=== PATIENT | male | born 1960 | race Caucasian/White ===

== ENCOUNTER 2017-11-08 15:47 | Emergency (ER) | payer BC ==
[2017-11-08 15:59] VITALS: BP 193/107
--- NOTE | 2017-11-08 16:23 | UC ---
Cardiac HPI - HPI Summary HPI Summary: SUDDEN ONSET OF ANTERIOR CHEST PAIN AND NAUSEA WHILE IN [employer] [place] ABOUT 20 MIN TOW MATE. CHECKED PULSE AND FELT HE WAS SKIPPING BEATS. DENIES SOB. NO FEVER. PAIN HAS RESOLVED SINCE BEING HERE IN UC AND PT NOW FEELS WEAK AND FATIGUED. TOOK 81MG ASA EARLIER TODAY. 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 - Onset/Duration: Sudden Onset, Lasting Minutes Timing: Constant Initial Severity: Moderate Current Severity: None Pain Intensity: 0 Chest Pain Location: Diffuse Character: Skipped Beats, Dull/Aching Aggravating Factor(s): Nothing Alleviating Factor(s): Spontaneous Resolution Associated Signs & Symptoms: Positive: Chest Pain, Weakness, Nausea/Vomiting - Allergy/Home Medications Allergies/Adverse Reactions: Allergies Allergy/AdvReac Type Severity Reaction Status Date / Time No Known Allergies Allergy Verified 11/08/17 15:55 Home Medications: Home Medications Aspirin [Aspirin 81 MG TAB] 81 mg PO DAILY WITH MEAL 11/08/17 [History Confirmed 11/08/17] Bp Med 11/08/17 [History] Cholecalciferol TAB* [Vitamin D TAB*] 1,000 unit PO DAILY 11/08/17 [History Confirmed 11/08/17] Metformin HCl [Fortamet] 1,000 mg PO BID 11/08/17 [History Confirmed 11/08/17] Multiple Vitamins W/ Minerals [Multivitamin Men] 1 tab PO DAILY 11/08/17 [ History Confirmed 11/08/17] Potassium Chlor TAB* [Potassium Chlor TAB 20 MEQ*] 2 tab PO DAILY WITH MEAL [History Confirmed 11/08/17] PMH/Surg Hx/FS Hx/Imm Hx Endocrine History: Diabetes Cardiovascular History: Hypertension - Surgical History Surgical History: Yes - Family History Known Family History: Positive: Hypertension - Social History Alcohol Use: Occasionally Substance Use Type: None Smoking Status (MU): Former Smoker Review of Systems Constitutional: Fatigue - WEAKNESS Respiratory: Negative Cardiovascular: Chest Pain, Other - SKIPPED BEATS Gastrointestinal: Nausea All Other Systems Reviewed And Are Negative: Yes Physical Exam Triage Information Reviewed: Yes Appearance: No Pain Distress, Well-Nourished, Ill-Appearing - MOD Vital Signs: Initial Vital Signs Temp 97.3 F 11/08/17 15:50 Pulse 79 11/08/17 15:50 Resp 18 11/08/17 15:50 BP 193/107 11/08/17 15:50 Pulse Ox 99 11/08/17 15:50 Vital Signs Reviewed: Yes Eyes: Positive: Conjunctiva Clear ENT: Positive: Hearing grossly normal Neck: Positive: Supple Respiratory Exam: Normal Cardiovascular Exam: Normal Abdomen Description: Positive: Soft Musculoskeletal: Positive: No Edema Neurological: Positive: Alert Psychological: Positive: Normal Response To Family, Age Appropriate Behavior Skin: Positive: rashes - PSORIASIS PLAQUES Diagnostics - EKG Cardiac Rate: NL Cardiac Rhythm: Sinus: Normal - 77 BPM Ectopy: None ST Segment: Normal - Assessment/Plan Course Of Treatment: TOOK 81MG ASA EARLIER TODAY AT HOME. PT GIVEN 81MG X 3 CHEW AND SWALLOW HERE IN UC. - Clinical Impression Provider Diagnoses: CHEST PAIN - Physician Notifications Discussed Patient Care With: Suellen Sykes - TO [facility] BY AMBULANCE Time Discussed With Above Provider: 16:25 Instructed by Provider To: MD Will See In ED Discharge - Discharge Plan Condition: Stable Disposition: TRANS HIGHER LVL OF CARE FAC Referrals: No Primary Care Phys,NOPCP [Primary Care Provider] -
[2017-11-08] MEDS ORDERED: Aspirin Low Dose CHEW TAB* 81 MG PO ONE (16:28)
== END 2017-11-08 16:45 | disposition short-term general hospital (02) ==
LOC: UCEAST 15:47
DX: R07.9 Chest pain, unspecified (principal); E11.9 Type 2 diabetes mellitus without complications; I10 Essential (primary) hypertension; Z82.49 Family history of ischemic heart disease and other diseases of the circulatory system; Z87.891 Personal history of nicotine dependence; Z79.82 Long term (current) use of aspirin
CPT/HCPCS: 93005; 99203; A9270-GY; G0463

== ENCOUNTER 2017-11-08 17:08 | Observation (INO) | payer BC ==
[2017-11-08 18:10] LABS: Hematocrit 44 % (42-52); Hemoglobin 14.9 g/dl (14.0-18.0); Mean Corpuscular HGB Conc 34 g/dl (31-36); Mean Corpuscular Hemoglobin 28 pg (27-31); Mean Corpuscular Volume 84 fL (80-94); Mean Platelet Volume 9 um3 (7.4-10.4); Red Blood Count 5.27 10^6/ul (4.0-5.4); Red Cell Distribution Width 16 % (10.5-15); White Blood Count 9.5 10^3/ul (3.5-10.8)
--- NOTE | 2017-11-08 18:18 | RAD ---
INDICATION: Palpitations COMPARISON: None TECHNIQUE: An AP portable view obtained at 1800 hours is submitted. FINDINGS: Bones/Soft Tissues: There are no acute bony findings. Cardiomediastinal: The cardiomediastinal silhouette is normal. Lungs: There are no infiltrates. Pleura: There are no pleural effusions. Other: None IMPRESSION: NO ACTIVE DISEASE.
[2017-11-08 18:27] LABS: Albumin 4.2 g/dL (3.2-5.2); BUN/Creatinine Ratio 21.9 (8-20); Calcium 9.6 mg/dL (8.6-10.3); EGFR African American 103.5 (>60); EGFR Non-African American 80.5 (>60); Globulin 2.9 g/dL (2-4); Magnesium 1.8 mg/dL (1.9-2.7); Potassium 3.6 mmol/L (3.5-5.0); Total Bilirubin 0.7 mg/dL (0.2-1.0); Total Protein 7.1 g/dL (6.4-8.9); Troponin I 0.01 ng/mL (<0.04)
--- NOTE | 2017-11-08 18:50 | ED ---
Kirk Wang Gabriel, scribed for Ariana Delgado MD on 11/08/17 at 1751 . Palpitations / Dysrhythmia - HPI Summary HPI Summary: This patient is a 57 year old M BIBA to [facility] from accompanied by his with a chief complaint of palpitations since [employer]. The patient rates the pain 0/ 10 in severity. Patient reports weakness. Patient denies actual CP, but has an abnormal feeling in his chest. Pt denies nausea and vomiting, SOB and diaphoresis. Pt states he was trying to get [place] decoration out in the front yard and he was frustrated due to the task. After this he got in the car and was driving when he got a warm sensation in his chest and felt like he ate a full meal even though he had not eaten. He also states that his chest didn t feel right, he said his heart beat 4 times and stopped and was irregular for some time. Pt is having frequent PVCs and PAC's noted on the monitor during the evaluation his BP is 145/85. He states he is not feeling these PACs currently that are noted on the monitor. Patient has a history of HTN, DM II, and hyperlipidemia. He is a nonsmoker. No fam hx CAD per pt. 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 Timing: Intermittent Episodes Lasting: - minutes Severity Initially: Mild Severity Currently: None Character: Irregular Aggravating: Nothing Alleviating: Other - spontaneous Associated Signs & Symptoms: Negative - nausea, vomiting, SOB and CP - Risk Factors Cardiac: Hypertension, Diabetes, Elevated Lipids - Allergy/Home Medications Allergies/Adverse Reactions: Allergies Allergy/AdvReac Type Severity Reaction Status Date / Time No Known Allergies Allergy Verified 11/08/17 15:55 Home Medications: Home Medications Atorvastatin* 80 mg PO DAILY 11/08/17 [History Confirmed 11/08/17] Fish Oil 500 mg 1,000 mg PO DAILY 11/08/17 [History Confirmed 11/08/17] Glipizide 5 mg PO BID 11/08/17 [History Confirmed 11/08/17] Hydrochlorothiazide TAB* 50 mg PO DAILY 11/08/17 [History Confirmed 11/08/17] PMH/Surg Hx/FS Hx/Imm Hx Previously Healthy: No Endocrine/Hematology History: Reports: Hx Diabetes, Other Endocrine/ Hematological Disorders - psoriasis Cardiovascular History: Reports: Hx Hypercholesterolemia, Hx Hypertension - Surgical History Surgery Procedure, Year, and Place: no surgery Infectious Disease History: No Infectious Disease History: Denies: Traveled Outside the [place] in Last 30 Days - Family History Known Family History: Positive: Hypertension, Diabetes Negative: Cardiac Disease - Social History Occupation: Employed Full-time Lives: With Family Alcohol Use: Occasionally Hx Substance Use: No Substance Use Type: Reports: None Hx Tobacco Use: No Smoking Status (MU): Former Smoker Review of Systems Constitutional: Negative Positive: Palpitations. Negative: Chest Pain Respiratory: Negative Gastrointestinal: Negative Negative: Nausea Skin: Negative Positive: Weakness Psychological: Normal All Other Systems Reviewed And Are Negative: Yes Physical Exam - Summary Physical Exam Summary: Appearance: Well-appearing, no pain distress, Pt is obese. Skin: Warm, color reflects adequate perfusion. Psoriasis on arms, legs, abdomen- extensive Head: Normal Head/Face appearance Eyes: Conjunctiva clear, EOMI ENT: Normal appearance Neck: Supple, no JVD Respiratory: Lungs clear, Normal breath sounds, no respiratory distress Cardio: No murmur, pulses normal, brisk capillary refill. Frequent PACs on monitor. Abdomen: soft, nontender Musculoskeletal: Strength Intact/ ROM intact Neuro: Alert, muscle tone normal,facial symmetry, speech normal, sensory/motor intact Triage Information Reviewed: Yes Vital Signs On Initial Exam: Initial Vitals Temp Pulse Resp BP Pulse Ox 97.8 F 70 20 204/105 95 11/08/17 17:11 11/08/17 17:11 11/08/17 17:11 11/08/17 17:11 11/08/17 17:11 Vital Signs Reviewed: Yes - Vianca Coma Scale Coma Scale Total: 15 Diagnostics - Vital Signs Vital Signs Temp Pulse Resp BP Pulse Ox 11/08/17 17:30 66 11 145/86 97 11/08/17 17:22 68 12 155/92 98 11/08/17 17:21 64 96 11/08/17 17:11 97.8 F 70 20 204/105 95 - Laboratory Lab Results: Lab Results 11/08/17 11/08/17 11/08/17 Range/Units 18:00 18:00 18:00 WBC (3.5-10.8) 10^3/ul RBC (4.0-5.4) 10^6/ul Hgb (14.0-18.0) g/dl Hct (42-52) % MCV (80-94) fL MCH (27-31) pg MCHC (31-36) g/dl RDW (10.5-15) % Plt Count (150-450) 10^3/ul MPV (7.4-10.4) um3 Neut % (Auto) (38-83) % Lymph % (Auto) (25-47) % [place] % (Auto) (1-9) % Eos % (Auto) (0-6) % Baso % (Auto) (0-2) % Absolute Neuts (auto) (1.5-7.7) 10^3/ul Absolute Lymphs (auto) (1.0-4.8) 10^3/ul Absolute Monos (auto) (0-0.8) 10^3/ul Absolute Eos (auto) (0-0.6) 10^3/ul Absolute Basos (auto) (0-0.2) 10^3/ul Absolute Nucleated RBC 10^3/ul Nucleated RBC % INR (Anticoag Therapy) 0.86 (0.77-1.02) APTT 31.3 (26.0-36.3) seconds D-Dimer, Quantitative < 200 (Less Than 230) ng/mL Sodium 135 (133-145) mmol/L Potassium 3.6 (3.5-5.0) mmol/L Chloride 97 L (101-111) mmol/L Carbon Dioxide 27 (22-32) mmol/L Anion Gap 11 (2-11) mmol/L BUN 21 (6-24) mg/dL Creatinine 0.96 (0.67-1.17) mg/dL Est GFR ( Amer) 103.5 (>60) Est GFR (Non-Af Amer) 80.5 (>60) BUN/Creatinine Ratio 21.9 H (8-20) Glucose 234 H (70-100) mg/dL Lactic Acid (0.5-2.0) mmol/L Calcium 9.6 (8.6-10.3) mg/dL Magnesium 1.8 L (1.9-2.7) mg/dL Total Bilirubin 0.70 (0.2-1.0) mg/dL AST 26 (13-39) U/L ALT 32 (7-52) U/L Alkaline Phosphatase 58 (34-104) U/L Total Creatine Kinase 76 (10-223) U/L CK-MB (CK-2) 2.0 (0.6-6.3) ng/mL Troponin I 0.01 (<0.04) ng/mL B-Natriuretic Peptide 23 ( - 100) pg/mL Total Protein 7.1 (6.4-8.9) g/dL Albumin 4.2 (3.2-5.2) g/dL Globulin 2.9 (2-4) g/dL Albumin/Globulin Ratio 1.4 (1-3) TSH Pending 11/08/17 11/08/17 Range/Units 18:00 18:00 WBC 9.5 (3.5-10.8) 10^3/ul RBC 5.27 (4.0-5.4) 10^6/ul Hgb 14.9 (14.0-18.0) g/dl Hct 44 (42-52) % MCV 84 (80-94) fL MCH 28 (27-31) pg MCHC 34 (31-36) g/dl RDW 16 H (10.5-15) % Plt Count 130 L (150-450) 10^3/ul MPV 9 (7.4-10.4) um3 Neut % (Auto) 75.4 (38-83) % Lymph % (Auto) 18.0 L (25-47) % [place] % (Auto) 5.0 (1-9) % Eos % (Auto) 1.1 (0-6) % Baso % (Auto) 0.5 (0-2) % Absolute Neuts (auto) 7.2 (1.5-7.7) 10^3/ul Absolute Lymphs (auto) 1.7 (1.0-4.8) 10^3/ul Absolute Monos (auto) 0.5 (0-0.8) 10^3/ul Absolute Eos (auto) 0.1 (0-0.6) 10^3/ul Absolute Basos (auto) 0 (0-0.2) 10^3/ul Absolute Nucleated RBC 0.01 10^3/ul Nucleated RBC % 0.1 INR (Anticoag Therapy) (0.77-1.02) APTT (26.0-36.3) seconds D-Dimer, Quantitative (Less Than 230) ng/mL Sodium (133-145) mmol/L Potassium (3.5-5.0) mmol/L Chloride (101-111) mmol/L Carbon Dioxide (22-32) mmol/L Anion Gap (2-11) mmol/L BUN (6-24) mg/dL Creatinine (0.67-1.17) mg/dL Est GFR ( Amer) (>60) Est GFR (Non-Af Amer) (>60) BUN/Creatinine Ratio (8-20) Glucose (70-100) mg/dL Lactic Acid 1.9 (0.5-2.0) mmol/L Calcium (8.6-10.3) mg/dL Magnesium (1.9-2.7) mg/dL Total Bilirubin (0.2-1.0) mg/dL AST (13-39) U/L ALT (7-52) U/L Alkaline Phosphatase (34-104) U/L Total Creatine Kinase (10-223) U/L CK-MB (CK-2) (0.6-6.3) ng/mL Troponin I (<0.04) ng/mL B-Natriuretic Peptide ( - 100) pg/mL Total Protein (6.4-8.9) g/dL Albumin (3.2-5.2) g/dL Globulin (2-4) g/dL Albumin/Globulin Ratio (1-3) TSH Result Diagrams: 11/08/17 18:00 11/08/17 20:36 Lab Statement: Any lab studies that have been ordered have been reviewed, and results considered in the medical decision making process. - EKG 1729 Cardiac Rate: NL EKG Rhythm: Sinus Rhythm - at [address] Segment: Non-Specific EKG Interpretation: Normal AV/IV conduction, Normal axis, Normal QTc Re-Evaluation - Re-Evaluation First Eval Re-Evaluation Time: 19:30 Change: Unchanged - informed of labs and plan to admit hospitalist Course/Dx - Course Course Of Treatment: pt with atypical CP and 3 cardiac risk factors and palpitations. Pt to be admitted for further evaluation. - Diagnoses Differential Diagnosis/HQI/PQRI: Positive: Cardiomyopathy, Coronary Artery Disease, Pulmonary Embolism Provider Diagnoses: Chest pain, Heart palpitations, Poorly controlled diabetes mellitus - Physician Notifications Discussed Care Of Patient With: Victor Hugo Mtz Time Discussed With Above Provider: 19:30 Instructed by Provider To: Admit As Observation Discharge - Discharge Plan Condition: Stable Disposition: ADMITTED TO [facility] documentation as recorded by the Kirk carreno Gabriel accurately reflects the service I personally performed and the decisions made by , Ariana Delgado MD.
[2017-11-08 19:04] LABS: TSH (Thyroid Stimulating Horm) 2.3 mcIU/mL (0.34-5.60)
[2017-11-08] MEDS ORDERED: Acetaminophen TAB* 325 MG PO PRN (19:35)
[2017-11-08] MEDS ORDERED: Albuterol 2.5 MG/3 ML NEB.SOL* (0.083%) INH PRN (19:35)
[2017-11-08] MEDS ORDERED: Melatonin (NF) 3 MG TAB PO PRN (19:38)
[2017-11-08] MEDS ORDERED: Ondansetron INJ* 2 MG/ML VIAL IV PRN (19:38)
--- NOTE | 2017-11-08 20:18 | HP ---
H&P (Free Text) History and Physical: PCP: none Date/Time: 11/08/2017 193 CC: chest pain HPI: Mr Florian is a 57YO obese male HX DM2, HTN, HLD, & psoriasis w/ large plaque burden who was exerting himself setting up Xmas decorations which were not going well. He became frustrated and decided to drive to town. En route he developed lower substernal "indigestion" like "a blanket draped across", but is reluctant to call it pressure. He states it was not painful. He checked his pulse and found it irregular with brief skips every 4th or so beat. This was associated with nausea without emesis, palpitations, fatigue, & generalized weakness. He presented to urgent care where he was given an additional 243mg ASA to chew as he had taken 81mg earlier in the day and EMS called for transport. Currently he just reports fatigue without other symptoms. PMedHx DM2 HTN HLD psoriasis w/ large plaque burden Ambulatory Orders Aspirin [Aspirin 81 MG TAB] 81 mg PO DAILY WITH MEAL 11/08/17 Atorvastatin* 80 mg PO DAILY 11/08/17 Cholecalciferol TAB* [Vitamin D TAB*] 1,000 unit PO DAILY 11/08/17 Fish Oil 500 mg 1,000 mg PO DAILY 11/08/17 Glipizide 5 mg PO BID 11/08/17 Hydrochlorothiazide TAB* 50 mg PO DAILY 11/08/17 Metformin HCl [Fortamet] 1,000 mg PO BID 11/08/17 Multiple Vitamins W/ Minerals [Multivitamin Men] 1 tab PO DAILY 11/08/17 Potassium Chlor TAB* [Potassium Chlor TAB 20 MEQ*] 2 tab PO DAILY WITH MEAL Allergies No Known Allergies Allergy (Verified 11/08/17 15:55) PSurgHx denies SocHx: trivial smoking HX, rare alcohol, no recreational drugs; lives with his ; 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; full 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 status FamHx: Mother: alive at 84 w/ dementia; Father: passed in his 70s 2nd unknown type cancer; 1/2 sister: no CAD/CVA; brothers x3: no CAD/CVA ROS: as above, otherwise reviewed and all were negative vitals: Vital Signs Temp 37.0 C 11/08/17 23:54 Pulse 80 11/08/17 23:54 Resp 20 11/08/17 23:54 BP 143/68 11/08/17 23:54 Pulse Ox 95 11/08/17 23:54 Intake & Output 11/08/17 11/08/17 11/09/17 11:59 23:59 11:59 Weight 129.637 kg Constitutional: NAD, normally developed, obese white male HEENM: atraumatic; sclera/conjunctiva: anicteric/clear; hearing: clinically intact; oropharynx: clear, mucosa moist Neck: soft tissue: non-tender; thyroid: normal Pulmonary: clear to auscultation bilaterally, good aeration, no accessory muscle use CV: RR/RR, normal S1S2, no carotid bruit, no jugular venous distention, 2+ B DP/ PT, no edema Abdominal: soft, non-distended, non-tender, no rebound/guarding/rigidity, normoactive bowel sounds, no hepatosplenomegaly or masses, no costovertebral angle tenderness Musculoskeletal: general: grossly intact, no tenderness to palpation Integumental: normal appearance and texture of exposed skin Psychiatric orientation: AA&O to PPS affect: calm mood: cooperative eye contact: good content: reliable responses: timely insight: good Testing: Lab Results 11/08/17 11/08/17 11/08/17 Range/Units 18:00 18:00 18:00 WBC (3.5-10.8) 10^3/ul RBC (4.0-5.4) 10^6/ul Hgb (14.0-18.0) g/dl Hct (42-52) % MCV (80-94) fL MCH (27-31) pg MCHC (31-36) g/dl RDW (10.5-15) % Plt Count (150-450) 10^3/ul MPV (7.4-10.4) um3 Neut % (Auto) (38-83) % Lymph % (Auto) (25-47) % Gregory % (Auto) (1-9) % Eos % (Auto) (0-6) % Baso % (Auto) (0-2) % Absolute Neuts (auto) (1.5-7.7) 10^3/ul Absolute Lymphs (auto) (1.0-4.8) 10^3/ul Absolute Monos (auto) (0-0.8) 10^3/ul Absolute Eos (auto) (0-0.6) 10^3/ul Absolute Basos (auto) (0-0.2) 10^3/ul Absolute Nucleated RBC 10^3/ul Nucleated RBC % INR (Anticoag Therapy) 0.86 (0.77-1.02) APTT 31.3 (26.0-36.3) seconds D-Dimer, Quantitative < 200 (Less Than 230) ng/mL Sodium 135 (133-145) mmol/L Potassium 3.6 (3.5-5.0) mmol/L Chloride 97 L (101-111) mmol/L Carbon Dioxide 27 (22-32) mmol/L Anion Gap 11 (2-11) mmol/L BUN 21 (6-24) mg/dL Creatinine 0.96 (0.67-1.17) mg/dL Est GFR ( Amer) 103.5 (>60) Est GFR (Non-Af Amer) 80.5 (>60) BUN/Creatinine Ratio 21.9 H (8-20) Glucose 234 H (70-100) mg/dL POC Glucose (mg/dL) (70-100) mg/dL Hemoglobin A1c (4.0-5.6) % Lactic Acid (0.5-2.0) mmol/L Calcium 9.6 (8.6-10.3) mg/dL Magnesium 1.8 L (1.9-2.7) mg/dL Total Bilirubin 0.70 (0.2-1.0) mg/dL AST 26 (13-39) U/L ALT 32 (7-52) U/L Alkaline Phosphatase 58 (34-104) U/L Total Creatine Kinase 76 (10-223) U/L CK-MB (CK-2) 2.0 (0.6-6.3) ng/mL Troponin I 0.01 (<0.04) ng/mL B-Natriuretic Peptide 23 ( - 100) pg/mL Total Protein 7.1 (6.4-8.9) g/dL Albumin 4.2 (3.2-5.2) g/dL Globulin 2.9 (2-4) g/dL Albumin/Globulin Ratio 1.4 (1-3) TSH 2.30 (0.34-5.60) mcIU/mL 11/08/17 11/08/17 11/08/17 Range/Units 18:00 18:00 18:00 WBC 9.5 (3.5-10.8) 10^3/ul RBC 5.27 (4.0-5.4) 10^6/ul Hgb 14.9 (14.0-18.0) g/dl Hct 44 (42-52) % MCV 84 (80-94) fL MCH 28 (27-31) pg MCHC 34 (31-36) g/dl RDW 16 H (10.5-15) % Plt Count 130 L (150-450) 10^3/ul MPV 9 (7.4-10.4) um3 Neut % (Auto) 75.4 (38-83) % Lymph % (Auto) 18.0 L (25-47) % Gregory % (Auto) 5.0 (1-9) % Eos % (Auto) 1.1 (0-6) % Baso % (Auto) 0.5 (0-2) % Absolute Neuts (auto) 7.2 (1.5-7.7) 10^3/ul Absolute Lymphs (auto) 1.7 (1.0-4.8) 10^3/ul Absolute Monos (auto) 0.5 (0-0.8) 10^3/ul Absolute Eos (auto) 0.1 (0-0.6) 10^3/ul Absolute Basos (auto) 0 (0-0.2) 10^3/ul Absolute Nucleated RBC 0.01 10^3/ul Nucleated RBC % 0.1 INR (Anticoag Therapy) (0.77-1.02) APTT (26.0-36.3) seconds D-Dimer, Quantitative (Less Than 230) ng/mL Sodium (133-145) mmol/L Potassium (3.5-5.0) mmol/L Chloride (101-111) mmol/L Carbon Dioxide (22-32) mmol/L Anion Gap (2-11) mmol/L BUN (6-24) mg/dL Creatinine (0.67-1.17) mg/dL Est GFR ( Amer) (>60) Est GFR (Non-Af Amer) (>60) BUN/Creatinine Ratio (8-20) Glucose (70-100) mg/dL POC Glucose (mg/dL) (70-100) mg/dL Hemoglobin A1c 9.5 H (4.0-5.6) % Lactic Acid 1.9 (0.5-2.0) mmol/L Calcium (8.6-10.3) mg/dL Magnesium (1.9-2.7) mg/dL Total Bilirubin (0.2-1.0) mg/dL AST (13-39) U/L ALT (7-52) U/L Alkaline Phosphatase (34-104) U/L Total Creatine Kinase (10-223) U/L CK-MB (CK-2) (0.6-6.3) ng/mL Troponin I (<0.04) ng/mL B-Natriuretic Peptide ( - 100) pg/mL Total Protein (6.4-8.9) g/dL Albumin (3.2-5.2) g/dL Globulin (2-4) g/dL Albumin/Globulin Ratio (1-3) TSH (0.34-5.60) mcIU/mL 11/08/17 11/08/17 11/08/17 Range/Units 20:36 21:50 22:57 WBC (3.5-10.8) 10^3/ul RBC (4.0-5.4) 10^6/ul Hgb (14.0-18.0) g/dl Hct (42-52) % MCV (80-94) fL MCH (27-31) pg MCHC (31-36) g/dl RDW (10.5-15) % Plt Count (150-450) 10^3/ul MPV (7.4-10.4) um3 Neut % (Auto) (38-83) % Lymph % (Auto) (25-47) % Gregory % (Auto) (1-9) % Eos % (Auto) (0-6) % Baso % (Auto) (0-2) % Absolute Neuts (auto) (1.5-7.7) 10^3/ul Absolute Lymphs (auto) (1.0-4.8) 10^3/ul Absolute Monos (auto) (0-0.8) 10^3/ul Absolute Eos (auto) (0-0.6) 10^3/ul Absolute Basos (auto) (0-0.2) 10^3/ul Absolute Nucleated RBC 10^3/ul Nucleated RBC % INR (Anticoag Therapy) (0.77-1.02) APTT (26.0-36.3) seconds D-Dimer, Quantitative (Less Than 230) ng/mL Sodium (133-145) mmol/L Potassium (3.5-5.0) mmol/L Chloride (101-111) mmol/L Carbon Dioxide (22-32) mmol/L Anion Gap (2-11) mmol/L BUN 19 (6-24) mg/dL Creatinine 0.91 (0.67-1.17) mg/dL Est GFR ( Amer) 110.1 (>60) Est GFR (Non-Af Amer) 85.6 (>60) BUN/Creatinine Ratio (8-20) Glucose (70-100) mg/dL POC Glucose (mg/dL) 204 H (70-100) mg/dL Hemoglobin A1c (4.0-5.6) % Lactic Acid (0.5-2.0) mmol/L Calcium (8.6-10.3) mg/dL Magnesium (1.9-2.7) mg/dL Total Bilirubin (0.2-1.0) mg/dL AST (13-39) U/L ALT (7-52) U/L Alkaline Phosphatase (34-104) U/L Total Creatine Kinase (10-223) U/L CK-MB (CK-2) (0.6-6.3) ng/mL Troponin I 0.02 0.02 (<0.04) ng/mL B-Natriuretic Peptide ( - 100) pg/mL Total Protein (6.4-8.9) g/dL Albumin (3.2-5.2) g/dL Globulin (2-4) g/dL Albumin/Globulin Ratio (1-3) TSH (0.34-5.60) mcIU/mL 11/09/ Range/Units 00:33 WBC (3.5-10.8) 10^3/ul RBC (4.0-5.4) 10^6/ul Hgb (14.0-18.0) g/dl Hct (42-52) % MCV (80-94) fL MCH (27-31) pg MCHC (31-36) g/dl RDW (10.5-15) % Plt Count (150-450) 10^3/ul MPV (7.4-10.4) um3 Neut % (Auto) (38-83) % Lymph % (Auto) (25-47) % Gregory % (Auto) (1-9) % Eos % (Auto) (0-6) % Baso % (Auto) (0-2) % Absolute Neuts (auto) (1.5-7.7) 10^3/ul Absolute Lymphs (auto) (1.0-4.8) 10^3/ul Absolute Monos (auto) (0-0.8) 10^3/ul Absolute Eos (auto) (0-0.6) 10^3/ul Absolute Basos (auto) (0-0.2) 10^3/ul Absolute Nucleated RBC 10^3/ul Nucleated RBC % INR (Anticoag Therapy) (0.77-1.02) APTT (26.0-36.3) seconds D-Dimer, Quantitative (Less Than 230) ng/mL Sodium (133-145) mmol/L Potassium (3.5-5.0) mmol/L Chloride (101-111) mmol/L Carbon Dioxide (22-32) mmol/L Anion Gap (2-11) mmol/L BUN (6-24) mg/dL Creatinine (0.67-1.17) mg/dL Est GFR ( Amer) (>60) Est GFR (Non-Af Amer) (>60) BUN/Creatinine Ratio (8-20) Glucose (70-100) mg/dL POC Glucose (mg/dL) (70-100) mg/dL Hemoglobin A1c (4.0-5.6) % Lactic Acid (0.5-2.0) mmol/L Calcium (8.6-10.3) mg/dL Magnesium (1.9-2.7) mg/dL Total Bilirubin (0.2-1.0) mg/dL AST (13-39) U/L ALT (7-52) U/L Alkaline Phosphatase (34-104) U/L Total Creatine Kinase (10-223) U/L CK-MB (CK-2) (0.6-6.3) ng/mL Troponin I 0.02 (<0.04) ng/mL B-Natriuretic Peptide ( - 100) pg/mL Total Protein (6.4-8.9) g/dL Albumin (3.2-5.2) g/dL Globulin (2-4) g/dL Albumin/Globulin Ratio (1-3) TSH (0.34-5.60) mcIU/mL ECG, personally reviewed: NSR rate 69, no ischemia CXR, personally reviewed: IMPRESSION: NO ACTIVE DISEASE. Impression: 57M HX DM2, HTN, HLD, & psoriasis w/ large plaque burden presents with chest discomfort & palpitations for r/o ACS DIAGNOSIS & PLAN Primary chest discomfort r/o ACS : aspirin given at urgent care : metoprolol 12.5mg PO x1 : supplemental oxygen : telemetry : trend troponin : dobutamine stress ECHO in AM : supportive care Secondary DM2 : check A1c : correctional insulin : continue glipizide : hold metformin : Q4H glucometry HTN : hold HCTZ HLD : continue atorvastatin psoriasis w/ large plaque burden : no acute issues Admission Rational: observation for r/o ACS DVTp: heparin SQ Code Status: full HCP:
[2017-11-08 21:00] LABS: EGFR African American 110.1 (>60); EGFR Non-African American 85.6 (>60)
[2017-11-08 21:02] LABS: Troponin I 0.02 ng/mL (<0.04)
[2017-11-08] MEDS: NS 0.9% 1000 ML* 1,000 ML IV SCH (21:38)
[2017-11-08] MEDS: Docusate CAP* 100 MG PO SCH (21:52)
[2017-11-08] MEDS: Insulin LISPRO* 1 UNITS UNIT SUBCUT SCH (21:57)
[2017-11-09] MEDS ORDERED: Metoprolol Tartrate TAB* 25 MG PO ONE (02:12)
[2017-11-09] MEDS: Insulin LISPRO* 1 UNITS UNIT SUBCUT SCH ×4 (03:14→14:07)
[2017-11-09] MEDS: Heparin VIAL(*) 5000 UNITS/ML VIAL (FIVE THOUSAND) SUBCUT SCH ×2 (05:44→14:07)
[2017-11-09] MEDS ORDERED: Omeprazole CAP* 20 MG PO SCH (06:00)
[2017-11-09] MEDS ORDERED: glipiZIDE TAB* 5 MG PO SCH (08:00)
[2017-11-09] MEDS: Docusate CAP* 100 MG PO SCH (08:19)
[2017-11-09] MEDS ORDERED: Potassium Chlor TAB* 20 MEQ TAB.ER PO SCH (08:30)
[2017-11-09] MEDS ORDERED: Aspirin EC Low Dose* 81 MG TAB.EC PO SCH ×2 (08:30→09:00)
[2017-11-09] MEDS ORDERED: Atorvastatin* 80 MG TAB PO SCH (09:00)
[2017-11-09] MEDS: NS 0.9% 1000 ML* 1,000 ML IV SCH (11:06)
[2017-11-09 12:02] VITALS: BP 155/84
--- NOTE | 2017-11-10 02:23 | DS ---
CC: Roberta Dia NP, [place]* DISCHARGE SUMMARY: DATE OF ADMISSION: 11/08/17 DATE OF DISCHARGE: 11/09/17 PRIMARY CARE PROVIDER: Roberta Dia NP PRIMARY DIAGNOSIS: Chest pain. SECONDARY DIAGNOSES: Include: 1. Type 2 diabetes. 2. Hypertension. 3. Hyperlipidemia. 4. Psoriasis. MEDICATIONS AT DISCHARGE: Unchanged from admission, include: 1. Glipizide 5 mg twice daily. 2. Hydrochlorothiazide 50 mg daily. 3. Atorvastatin 80 mg daily. 4. Fish oil 1000 mg daily. 5. Cholecalciferol 1000 mg daily. 6. Aspirin 81 mg daily. 7. Potassium chloride 40 mEq daily with meal. 8. Multivitamin 1 tab daily. 9. Metformin 1000 mg twice daily. PERTINENT LABORATORY DATA: Troponin I peaked at 0.02 four consecutive checks. BNP 23. Hemoglobin A1c 9.5. PERTINENT PROCEDURE PERFORMED DURING HOSPITAL STAY: Exercise stress test with EKG, impression: Hypertensive response, no ischemic changes, low risk. HISTORY OF PRESENT ILLNESS AND HOSPITAL COURSE: Mr. Florian is a 57-year-old male with past medical history as outlined in the history of present illness on the day of admission including hypertension, hyperlipidemia, and type 2 non- insulin- dependent diabetes mellitus, who developed chest discomfort as well as the sensation of irregular heart rate after hanging [place] ornaments and experiencing an episode of frustration. Given his comorbid illnesses in addition to presenting history, there was concern that his discomfort was related to cardiac ischemia. He is admitted to the hospital, had 4 negative troponins, and underwent negative stress test. He had no additional episodes during the course of the hospital stay. He has been monitored on telemetry without event. He was counseled on diet and exercise prior to discharge. He is not an active smoker. There were no complications during the course of this patient's hospital stay. FOLLOWUP INSTRUCTIONS: At followup, please: 1. The patient may benefit from tighter diabetes as well as blood pressure management. 2. No other specific labs or vitals that need followup. Reasons to return to the hospital included but not limited to recurrent or worsening symptoms including chest pain, shortness of breath, nausea, vomiting, lightheadedness, diaphoresis, loss of consciousness, near loss of consciousness , bleeding from any source, or inability to obtain or tolerate medications discussed with the patient. He acknowledged understanding. TIME SPENT: Greater than 45 minutes was spent in the discharge of this patient , greater than half was spent [id number] with the patient. [id number]/[facility] #: [id number] LILI
== END 2017-11-09 16:50 | disposition home or self-care (01) ==
LOC: ED 17:08 → MEDTELE 19:33
PROVIDERS: ADMIT Hospitalist; ATTEND Internal Medicine
DX: R07.9 Chest pain, unspecified (principal); E11.9 Type 2 diabetes mellitus without complications; I10 Essential (primary) hypertension; E78.5 Hyperlipidemia, unspecified; Z87.891 Personal history of nicotine dependence; L40.9 Psoriasis, unspecified; E78.00 Pure hypercholesterolemia, unspecified; Z79.82 Long term (current) use of aspirin; Z79.899 Other long term (current) drug therapy
CPT/HCPCS: 36415; 71010; 80053; 82550; 82553; 82565; 82947; 83036; 83605; 83735; 83880; 84443; 84484; 84520; 85025; 85379; 85610; 85730; 93005; 93017; 96360; 99285; A9270-GY; G0378; J1644